=== PATIENT | female | born 1980 | race Caucasian/White ===

== ENCOUNTER → 2018-01-05 | Outpatient (CLI) | payer OTHER, BC ==
[~2018-01-05] MED LIST: AMOCLA875 PO; Amoxicillin500 MG PO; BIRTH CONTROL; FEXO180 PO; FLUC200 PO; MULVITA PO; VITB100 PO
== END ==
LOC: LAB EV 17:24
DX: Z20.9 Contact with and (suspected) exposure to unspecified communicable disease (principal)
CPT/HCPCS: 86803; 87389

== ENCOUNTER → 2018-04-07 | Outpatient (CLI) | payer OTHER, BC ==
[2018-04-08 12:08] LABS: HCV ANTIBODY <0.1 (0.0-0.9); HEPATITIS B SURF AB QUANT 241.3 mIU/mL (Immunity>9.9); HIV SCREEN 4TH GENERATION WRFX Non Reactive (Non Reactive)
== END ==
LOC: LAB SHORT 11:28 → LAB EV 11:28
PROVIDERS: Physician Assistant Surgical
DX: Z20.9 Contact with and (suspected) exposure to unspecified communicable disease (principal)
CPT/HCPCS: 84460; 86317; 86803; 87389

== ENCOUNTER → 2019-07-04 | Outpatient (CLI) | payer BC | LOC: LAB 19:16 → LAB SHORT 19:16 | PROVIDERS: Nurse Practitioner Family | DX: Z01.419 Encounter for gynecological examination (general) (routine) without abnormal findings (principal) | CPT/HCPCS: G0145 ==

== ENCOUNTER 2021-08-25 03:06 | Emergency (ER) | payer BC ==
[~2021-08-25] VITALS: Ht 160 cm; Wt 68.0 kg
[2021-08-25 04:01] LABS: SARS-Cov-2 (COVID-19) PCR, MMC POSITIVE (NEGATIVE)
== END 2021-08-25 04:21 | disposition home or self-care (01) ==
LOC: ER 03:06
PROVIDERS: Student in an Organized Health Care Education/Training Program
DX: U07.1 COVID-19 (principal); Z88.8 Allergy status to other drugs, medicaments and biological substances
CPT/HCPCS: 99283; U0004